=== PATIENT | male | born 1985 | race Caucasian/White ===

== ENCOUNTER 2023-01-25 16:18 | Outpatient (AMB) | payer OTHER, SELFPAY ==
--- NOTE | 2023-01-25 16:20 | MHC.PC.OV ---
Vital Signs 01/25/23 16:23 Height 5 ft 11 in Weight 259 lb 8 oz BMI 36.2 BP 112/82 Blood Pressure Location Lt brachial Position Sitting Pulse 75 Pulse Source Pulse Oximeter Pulse Oximetry (%) 99 Oxygen Delivery Method Room Air Intake Visit Reasons: Re establish care, Requesting physical Intake Note: Patient is a new patient here to establish care for physical . Transferring care from Dr Young. Medical records have not been requested and have not received. Clipper Machine Operator Required: No Stamp Machine Servicer: Not Required per policy Accompanied by: Self / Same As Patient Allergies No Known Allergies Allergy (Verified 01/25/23 16:40) Medication List - Last Reconciled 01/25/23 by JONE Luu No Known Home Meds Tobacco use date assessed: 01/25/23 Dental Screening Dental Screen Date: 01/25/23 Did you have a dental visit in the last 12 months?: No Did you have a dental problem in the last 6 months where you did not have access to dental care?: No Was dental information given to patient?: No HPI Re establish care, Requesting physical HPI Details Patient is a 37-year-old male who presents today for physical exam as a new patient. Previous PCP Dr. Young over 5 years ago. Patient reports intermittent right ear tinnitus/whooshing sound for the past 3 months about 2 days per week that last about 1-2 hours/day and this is improving-he would like to hold off on ENT referral at this time. He will call for dental exam. Eye exam up-to-date. Patient would like to hold off on tetanus vaccine. No shortness of breath or chest pain [facility] Surgical History History of vasectomy Social History Housing: House Alcohol intake: never Patient Tobacco Use Status: Never used Tobacco e-Cigarette/Vaping Use: Never Used Second Hand Smoke Exposure: No service: No Current occupational status: employed Current occupation: OT Cognitive needs: No Hearing needs: No Vision needs: Yes (glasses) Questionnaire PHQ-9 Over the last 2 weeks, how often have you been bothered by any of the following problems? 1. Little interest or pleasure in doing things: not at all 2. Feeling down, depressed, or hopeless: not at all 3. Trouble falling or staying asleep, or sleeping too much: not at all 4. Feeling tired or having little energy: not at all 5. Poor appetite or overeating: not at all 6. Feeling bad about yourself - or that you are a failure or have let yourself or your family down: not at all 7. Trouble concentrating on things, such as reading the newspaper or watching television: not at all 8. Moving or speaking so slowly that other people could have noticed. Or the opposite - being so fidgety or restless that you have been moving around a lot more than usual: not at all 9. Thoughts that you would be better off or of hurting yourself in some way: not at all Total score: 0 Depression Screening Interpretation: Negative Depression Screening Done: Yes 49249 - PHQ-9 Billing: Yes Source: Developed by Drs. Diego Dobbs, Leidy Chavez, Chaz Ibarra and colleagues, with an educational monico from [employer]. Thrive Questionnaire Date Thrive assessed: 01/25/23 I am a: Patient What is your living situation today?: I have a steady place to live Within the past 12 months, did the food you bought not last and you didn't have the money to get more?: Never true Within the past 12 months, did you worry whether your food would run out before you got money to buy more?: Never true Do you have trouble paying for medicines?: No Do you have trouble getting transportation to medical appointments?: No Do you have trouble paying your heating and electricity bill?: No Do you have trouble taking care of your child, family member or friend?: No Do you have trouble with day-to-day activities such as bathing, preparing meals, shopping, managing finances, etc.?: No Are you currently unemployed and looking for a job?: No Are you interested in more education?: No Currently or been in a relationship where the following occur: no concerns reported AUDIT C Alcohol Use Questionnaire (AUDIT-C) 1. How often do you have a drink containing alcohol?: Never Total Score: 0 Score Reviewed/Action Taken: No SUJEY-7 AMB Questionnaire SUJEY-7 Date SUJEY - 7 assessed: 01/25/23 Feeling nervous, anxious, or on edge: 0 = Not at all Not being able to stop or control worryin = Not at all Worrying too much about different things: 0 = Not at all Trouble relaxin = Not at all Being so restless that it is hard to sit still: 0 = Not at all Becoming easily annoyed or irritable: 0 = Not at all Feeling afraid as if something awful might happen: 0 = Not at all Total SUJEY-7 score (0-4 normal; 5-9 mild; 10-14 moderate; 15-21 severe): 0 Source: Developed by Drs. Diego Dobbs, Leidy Chavez, Chaz Ibarra and colleagues, with an educational monico from [employer]. SUJEY-7 Assessment Billing SUJEY-7 Assessment Tool: SUJEY-7 Assessment 87005 Review of Systems Const Denies body aches, Denies chills, Denies fever(s) and Denies headache(s) Eyes Denies change in vision ENT Reports as per HPI, Denies dizziness, Denies otalgia, Denies headache(s), Denies nasal discharge, Denies sinus pain and Denies sore throat Card Denies chest pain, Denies edema, Denies lightheadedness and Denies dyspnea Resp Denies cough, Denies dyspnea and Denies wheezing GI Denies abdominal pain, Denies constipation, Denies diarrhea, Denies nausea and Denies vomiting Denies dysuria Musc Denies myalgias Skin/Breast Denies rash Neuro Denies dizziness and Denies headache(s) Aller/Immun Denies wheezing Physical exam (Primary Care) Vital Signs: Last Vital Signs Pulse 75 01/25/23 16:23 BP 112/82 01/25/23 16:23 Pulse Ox 99 01/25/23 16:23 Oxygen Delivery Method Room Air 01/25/23 16:23 BMI result Body Mass Index 36.2 Tobacco/Smoking Status: Tobacco use Status Tobacco use date assessed 01/25/23 01/25/23 16:30 Patient Tobacco Use Status Never used Tobacco 01/25/23 16:30 e-Cigarette/Vaping Use Never Used 01/25/23 16:30 PHQ-9: PHQ-9 Score PHQ-9: Total score 0 01/25/23 16:57 Depression Screening Interpretation: Negative Thrive Assessment: Date of Thrive Assessment Date Thrive assessed 01/25/23 01/25/23 16:30 Currently or been in a relationship where the following occur: no concerns reported Const General: cooperative and no acute distress Orientation/consciousness: patient oriented x3 HENMT Head: Yes normocephalic and Yes atraumatic Ears: TM's normal bilaterally Face and sinus: Yes sinuses nontender Mouth: oropharynx normal and moist mucous membranes Throat: Yes posterior oropharynx normal Eyes General: appearance normal, both eyes and all related structures Pupils: Equal, round and reactive pupils present EOM: EOMs intact bilaterally Neck Neck: Yes normal visual inspection, Yes full ROM and Yes no lymphadenopathy Thyroid: Thyroid normal Resp Effort & Inspection: normal respiratory effort and able to speak in complete sentences Auscultation: clear to auscultation bilaterally, no crackles, no rales, no rhonchi and no wheezes Cardio Rate: regular rate Rhythm: regular rhythm Heart sounds: S1 normal heart sound present, S2 normal heart sound present and no murmurs GI Palpation (GI): Soft to palpation, not firm, nontender, no guarding, not rigid and no hepatosplenomegaly Auscultation: normal bowel sounds General: No CVA tenderness Back/Spine/Pelvis Back: No CVA tenderness Skin General skin exam: no rashes or lesions noted Neuro General: patient oriented x3 Cranial nerves: Yes Equal, round and reactive pupils present Gait exam (Neuro): Normal gait present Extrem General: Yes full ROM and No edema Office Procedures Flu Questionnaire Does the patient have a severe egg allergy?: No Does the patient have severe life threatening allergies?: No Does the patient have a fever or illness today?: No Has the patient ever had Guillain-Lingle Syndrome?: No Has the patient ever had any past reaction to a flu shot?: No Immunizations flu vacc [id number] 6mos up(PF) 60 mcg(15 mcgx4)/0.5 mL IM syringe Performing Provider: JONE Luu Performing Location: [facility] Administered by: NADIR Dominguez on 01/25/23 16:57 Dose Route Admin Location Dispensed Lot Number Expiration Date NDC Bank Officer 0.5 mL IM Left Deltoid 0.5 mL [id number] 09/15/23 02151-501-70 [employer] VIS Given Date VIS Provided VIS Publication Date 01/25/23 Single Vaccine 20 Eligibility Eligibility Date Funding Source Not [facility] Eligible 01/25/23 Private Assessment and Plan Assessment & Plan (1) Tinnitus of right ear: Code(s): H93.11 - Tinnitus, right ear Plan: Improving per patient Patient is to notify office if worsening symptom (2) Adult general medical exam: Code(s): Z00.00 - Encounter for general adult medical examination without abnormal findings Plan: Repeat in 1 year (3) Obesity (BMI 30-39.9): Code(s): E66.9 - Obesity, unspecified Plan: Healthy food choices and exercise as tolerated Orders: Orders TSH reflex Free T4 01/25/23 Z00.00 - Encounter for general adult medical examination without abnormal findings Lipid Panel 01/25/23 Z00.00 - Encounter for general adult medical examination without abnormal findings Comprehensive [place]. Panel Fast 01/25/23 Z00.00 - Encounter for general adult medical examination without abnormal findings Complete Blood Count Auto Diff 01/25/23 Z00.00 - Encounter for general adult medical examination without abnormal findings Influenza [id number] Immunization 01/25/23 Z23 - Encounter for immunization Coding Level of Care Code New Pt Prev Care 18-39yr(62959 Diagnoses Tinnitus of right ear H93.11 Adult general medical exam Z00.00 Obesity (BMI 30-39.9) E66.9 Additional Codes SUJEY-7 Assessment Billing - SUJEY-7 Assessment Tool: SUJEY-7 Assessment 57848 ([id number])
[2023-01-25 16:23] VITALS: BP 112/82; PULSE 75; O2SAT 99; BMI 36.2
== END 2023-01-25 16:54 | disposition home or self-care (01) ==
PROVIDERS: PCP Nurse Practitioner Family; Visit Provider Nurse Practitioner Family
DX: Z23 Encounter for immunization (principal)
CPT/HCPCS: 90471; 90686; 99385

== ENCOUNTER 2024-12-18 08:44 | Outpatient (REF) | payer OTHER, SELFPAY ==
--- NOTE | ~2024-12-18 | XR_ITS ---
EXAMINATION: XR HAND, RIGHT CLINICAL INFORMATION: M79.641 - Pain in right hand COMPARISON: None available. TECHNIQUE: PA, lateral, and oblique views of the right hand. FINDINGS: No fracture, dislocation, or suspicious bone lesion. Along the proximal dorsum of the middle phalanx of the third digit, there is focal periosteal bone formation only appreciated on the lateral projection. There is mild associated soft tissue swelling of the third digit in this region. These findings are nonspecific. Remainder of the bones and soft tissues of the right hand are normal. XR/XR hand RT min 3V IMPRESSION: 1. Nonspecific periostitis and soft tissue swelling involving the dorsum of the proximal middle phalanx, third digit. Underlying bone appears normal. Etiology is uncertain. Electronically signed by: Can Yang MD 12/18/2024 09:25 AM EDT
--- OUTSIDE RECORDS SUMMARY | 2024-12-18 09:06 | XMS_ITS | Clinical Summary ---
Author Organization [facility] ity Address [address] [place] [address] Care Team Providers Care Athletic Trainer Name Role Phone Unavailable Primary Care Provider Unavailabl e Social History Tobacco Use Types Packs/Day Years Used Date Smoking Tobacco: Never Assessed Sex and Gender Information Value Date Recorded Sex Assigned at Not on file Legal Sex Male 8:29 AM EST Gender Identity Not on file Sexual Orientation Not on file Plan of Treatment Health Maintenance Due Date Last Done Comments DTaP,Tdap,and Td Vaccines (1 - Tdap) 2005 Hepatitis B Vaccines (1 of 3 - 19+ 3-dose series) 2005 HPV Vaccines (1 - 3-dose SCD M series) 2013 Depression Screening 03/18/2024 COVID-19 Vaccine (1 - 2023-2 5 season) 2024 Influenza Vaccine (#1) 2024 RSV Immunization Adult Patie nts (1 - 1-dose 75+ series) 2061 HIB Vaccines Aged Out No longer eligi ble based on patient's age to complete this topic Hepatitis A Vaccines Aged Out No long er eligible based on patient's age to complete this topic IPV Vaccines Aged Out No longer eligi ble based on patient's age to complete this topic MMR Vaccines Aged Out No longer eligi ble based on patient's age to complete this topic Meningococcal ACWY Vaccine Aged Out N o longer eligible based on patient's age to complete this topic Meningococcal B Vaccine Aged Out No l onger eligible based on patient's age to complete this topic Pneumococcal Vaccine: Pediat rics (0 to 5 Years) and At-Risk Patients (6 to 49 Years) Aged Out No longer eligible b ased on patient's age to complete this topic RSV Immunization Patients Un derik 20 months Aged Out No longer eligible b ased on patient's age to complete this topic Varicella Vaccines Aged Out No longer eligible based on patient's age to complete this topic
== END 2024-12-18 08:45 | disposition home or self-care (01) ==
LOC: HO.HOSX 08:44
PROVIDERS: Visit Provider Physician Assistant
DX: M20.021 Boutonniere deformity of right finger(s) (principal)
CPT/HCPCS: 73130

== ENCOUNTER 2024-12-18 09:09 | Outpatient (AMB) | payer OTHER, SELFPAY ==
--- NOTE | 2024-12-18 09:16 | A.OFFVIS_ITS ---
Vital Signs 12/18/24 09:23 Height 6 ft Weight 260 lb BMI 35.3 Intake Visit Reasons: MANAGER FINANCIAL-RT hand, middle finger injury-DOI 1 month ago Intake Note: Charlie is a 39 year old right hand domnant male who presents today as a new patient for an evaluation of right hand, middle finger injury, DOI 10/26/24. Patient reports that he was in [place] on a rope swing when he slipped and had gotten his finger caught in the knot. His finger was self reduced and had purchased finger splint. Currently his discomfort comes with applying pressure to his finger. He continues to have swelling in his finger. No other treatments. Allergies No Known Allergies Allergy (Verified 12/18/24 09:27) HPI HPI MANAGER FINANCIAL-RT hand, middle finger injury-DOI 1 month ago: Details: 39 yo male presents to the office today for right middle finger swelling, in Oct he was in vacation and went in the water with a rope swing and when he used the swing his finger got stuck i a knot and when he fell into the water he realized his finger was dislocated and he relocated it him self. 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 He continues to experience swelling and pain. He was seen at an urgent care, xrays obtained and was referred to our office for ortho eval. [facility] Surgical History History of vasectomy Social History (Updated 12/18/24 @ 09:20 by ISABELLA Angelo) Housing: House Alcohol intake: never Patient Tobacco Use Status: Never used Tobacco e-Cigarette/Vaping Use: Never Used Second Hand Smoke Exposure: No service: No Current occupational status: employed Current occupation: OT, right hand dominant Cognitive needs: No Hearing needs: No Vision needs: Yes (glasses) Review of Systems Const All systems reviewed & are unremarkable except as noted in HPI and below Physical Exam Vital Signs: BMI result Body Mass Index 35.3 Const General: cooperative and no acute distress Orientation/consciousness: patient oriented x3 Resp Effort & Inspection: normal respiratory effort and able to speak in complete sentences Cardio Peripheral pulses: Peripheral pulses 2+ throughout Neuro General: patient oriented x3 Extrem Other: Rt hand middle finger full ROM without limitations, mild swelling . He had flexion of the pip and extension of the dip resembling a boutonniere deformity. Results Reviewed Results Reviewed: XR hand RT min 3V IMPRESSION: 1. Nonspecific periostitis and soft tissue swelling involving the dorsum of the proximal middle phalanx, third digit. Underlying bone appears normal. Etiology is uncertain. Assessment & Plan Assessment & Plan (1) Boutonniere deformity of right finger(s): Code(s): M20.021 - Boutonniere deformity of right finger(s) Category: Medical Plan: I explained to the patient the extent of it is injury which seems to be an injury to the extensor mechanism. Because this is a proximally 2 months out from injury I am unsure if there is any reversal of the injury which would include surgical intervention. He has tried bracing which has failed. I would like to have him see Dr. Saucedo next week to discuss this further. The patient is content with this plan. Orders: Orders XR hand RT min 3V Today M79.641 - Pain in right hand Coding Level of Care Code New Pt Level 3 (79028) Complex EM visit Add On G2211 Diagnoses Boutonniere deformity of right finger(s) M20.021
[2024-12-18 09:23] VITALS: BMI 35.3
== END 2024-12-18 10:18 | disposition home or self-care (01) ==
LOC: HO.HOS 09:10
PROVIDERS: Visit Provider Physician Assistant
DX: M20.021 Boutonniere deformity of right finger(s) (principal)
CPT/HCPCS: 99203; G2211

== ENCOUNTER → 2024-12-18 09:12 | Outpatient (BNV) | payer OTHER, SELFPAY | PROVIDERS: Visit Provider Radiology Diagnostic Radiology | DX: R22.31 Localized swelling, mass and lump, right upper limb (principal); M79.641 Pain in right hand | CPT/HCPCS: 73130 ==

== ENCOUNTER 2024-12-29 09:54 | Outpatient (AMB) | payer OTHER, SELFPAY ==
--- NOTE | 2024-12-29 10:14 | MHC.OFFVIS ---
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 Patient reports that he was in [place] on a rope swing when he slipped and had gotten his finger caught in the knot. His finger was self reduced and had purchased finger splint. Last seen with Sallie Hawkins who advise patient to be re-evaluated with Dr. Saucedo since this is a proximally 2 months out from injury and is unsure if there is any reversal of the injury which would include surgical intervention. Today patient states he has pain with movement and over use of his finger. Denies numbness, tingling or locking if any finger. Allergies No Known Allergies Allergy (Verified 12/29/24 10:24) HPI HPI ov- RT hand MF injury, DOI 10/26/24 discuss surgery: Details: Charlie is a 39 year old right hand dominant man who presents for a right middle finger possible Boutonniere deformity, DOI: 10/26/24. He says he caught his finger in a rope swing while on vacation. He came up out of the water and says his middle finger PIP joint was pointed the wrong way. He self reduced & has been wearing an OTC finger splint. When she was last seen by Shruthi he says that his boutonniere deformity was quite a bit worse. He cut the end off of a close pin splint that held the PIP in extension but allowed for D IP flexion. He feels that this has worked very well for him and he has noticed some significant improvement in the appearance of his finger. He denies any numbness, tingling, locking, or catching. 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 [facility] Surgical History History of vasectomy Social History Housing: House Alcohol intake: never Patient Tobacco Use Status: Never used Tobacco e-Cigarette/Vaping Use: Never Used Second Hand Smoke Exposure: No service: No Current occupational status: employed Current occupation: OT, right hand dominant Cognitive needs: No Hearing needs: No Vision needs: Yes (glasses) Review of Systems Const All systems reviewed & are unremarkable except as noted in HPI and below Physical Exam Vital Signs: BMI result Body Mass Index 35.3 Const General: cooperative, healthy appearing and no acute distress Orientation/consciousness: patient oriented x3 HEENT Head: Yes normocephalic and Yes atraumatic Eyes EOM: EOMs intact bilaterally Resp Effort & Inspection: normal respiratory effort and able to speak in complete sentences Cardio Jugular venous distension: no JVD Skin General skin exam: turgor normal Rashes: no rashes Neuro General: patient oriented x3 Extrem Other: Evaluation of Right Upper Extremity: The patient is alert, oriented, and in no acute distress Neuro: Median, Ulnar, Radial nerves motor and sensory intact and sensation is normal to the tips of all digits Vascular: Cap refill brisk ROM: Middle finger is lacking ~10 degrees active extension of the PIP joint He can hold this finger extended against resistance Adjacent digits have ~5-10 degrees hyperextension Skin: No lacerations or abrasions. General: No Ecchymosis. No Erythema or evidence of infection. Radiographs: 3 views of the right hand from 12/18/24 were reviewed by me today in clinic. They show no fractures or dislocations. He appears to have made some bone on the dorsal aspect of the middle finger middle phalanx. No visible fractures. Psych Appearance: grossly normal Affect: normal affect Attitude: cooperative Assessment & Plan Assessment & Plan (1) Boutonniere deformity of right finger(s): Comment: Code(s): M20.021 - Boutonniere deformity of right finger(s) Category: Medical (2) Stiffness of finger joint of right hand: Code(s): M25.641 - Stiffness of right hand, not elsewhere classified Category: Medical Plan Assessment & Plan: 1. Right middle finger very mild Boutonniere deformity From an injury, DOI: 10/26/24 Improving with conservative management 2. Right middle finger stiffness Secondary to splinting I educated him about this condition i discussed treatment options. No operative intervention indicated at this time. He is doing well, and has had considerable improvement with non-operative treatment with a custom finger splint he fashioned himself I recommend activity modification & splinting, and he is in agreement I ordered OT hand therapy to have a custom finger splint made for him, holding the PIP joint in extension & allowing for DIP flexion. He will wear this for about 10 hours daily for the next 6-8 weeks. He is permitted to bring the fingers into flexion to prevent stiffness. He should bring his current finger splint into OT as an example of what splint works well for him he will work on active D IP flexion with a PIP held in extension. OT hand therapy also to help. He will follow up 6-8 weeks to see how he is doing. Scribed for Latasha Saucedo MD by Sukumar Brooke, medical laboratory scientist, on 12/29/24 at 10:30 AM, EST. Orders: Orders OT Evaluation and Treatment Today M25.641 - Stiffness of right hand, not elsewhere classified Coding Level of Care Code Est Pt Level 3 (11061) Diagnoses Boutonniere deformity of right finger(s) M20.021 Stiffness of finger joint of right hand M25.641
[2024-12-29 10:15] VITALS: BMI 35.3
--- OUTSIDE RECORDS SUMMARY | 2024-12-29 11:17 | XMS_ITS | Clinical Summary ---
Author Organization [facility] ity Address [address] [place] [address] Care Team Providers Care Archaeologist Name Role Phone Unavailable Primary Care Provider [...]
== END 2024-12-29 10:39 | disposition home or self-care (01) ==
LOC: HO.HOS 09:54
PROVIDERS: Visit Provider Orthopaedic Surgery
DX: M20.021 Boutonniere deformity of right finger(s) (principal); M25.641 Stiffness of right hand, not elsewhere classified
CPT/HCPCS: 99213

== ENCOUNTER 2025-01-04 11:02 | Outpatient (RCR) | payer OTHER, SELFPAY ==
--- NOTE | 2025-01-04 13:23 | MHC.OT.EP ---
[facility] Office [address] [phone] F: [phone] F: [phone] Occupational Therapy Plan of Care Patient Name: Charlie Givens Date of Evaluation: 01/04/25 Diagnosis: R MF Boutonniere Deformity Pain Location: Pain Score: 4 Pain Scale Used: Numeric (0 - 10) Aggravating Factors: Alleviating Factors: Assessment: Pt is a 39 yr. old R hand dominant male who injured his R MF While using a rope swing in October. 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 He saw Dr. Saucedo recently who reported he is healing well. He was referred to skilled OT therapy for fabrication of a custom orthoses, and education on DIP J ROM. 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 Frequency and Duration: The patient will be seen 1 x visit for fabrication of an orthoses Short Term Goals: Correction Goals: Pt will be compliant w/ orthoses wear Treatment Plan: Splinting Electronically Signed By: Marta Rose OTR/L Please Sign and return to therapist. Thank you once again for your referral.
--- NOTE | 2025-01-04 13:29 | MHC.OT.DC ---
[facility] Office [address] [phone] F: [phone] F: [phone] Occupational Therapy Discharge Note Patient Name: Charlie Givens Provider: Latasha Saucedo Diagnosis: R MF Boutonniere Deformity Date of Surgery: Date of Evaluation: 01/04/25 Date of Discharge: Treatments to Date: 1 Cancellations to Date: No Shows to Date: Discharge Status: Discharge Summary: 1 X VISIT FOR FABRICATION OF AN ORTHOSES THANK YOU FOR INCLUDING OUR TEAM IN THIS PATIENTS CARE! Electronically Signed By: Marta Rose OTR/L Reviewed/agree with student documentation: Therapist: Please Sign and return to therapist, thank you for your referral.
== END 2025-01-04 13:29 | disposition home or self-care (01) ==
LOC: HO.OT 11:02
PROVIDERS: Visit Provider Orthopaedic Surgery
DX: M25.641 Stiffness of right hand, not elsewhere classified (principal)
CPT/HCPCS: 29130; 97165; 97760

== ENCOUNTER 2025-02-09 09:44 | Outpatient (AMB) | payer OTHER, SELFPAY ==
[2025-02-09 10:01] VITALS: BMI 35.3
--- NOTE | 2025-02-09 10:01 | A.OFFVIS_ITS ---
Vital Signs 02/09/25 10:01 Height 6 ft Weight 260 lb BMI 35.3 Intake Visit Reasons: OV-RT hand MF injury, DOI 10/26/24-Follow up Intake Note: Charlie 39 yr old male presents today for his follow up visit for his right middle finger stiffness & right middle finger deformity from an injury, DOI: 10/26/24. States he was in [place], on a rope swing when he slipped and had gotten his finger caught in the knot. Patient last seen with Dr Saucedo who advise patient to attend O.T to have a custom finger splint made to be worn for 10 hours daily for the next 6-8 weeks. Today patient states he is wearing his custom made splint as needed. Reports he is able to make a fist, still feels a little stiffness but is a lot better than before.Denies numbness or tingling. 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 This is being managed cons ervatively with OT and custom splinting with the PIP in extension working on active D IP flexion. He says he has noticed considerable improvement. He says he caught his finger in a rope swing while on vacation. He came [place] of the water and says his middle finger PIP joint was pointed the wrong way. He denies any numbness, tingling, locking, or catching. 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 [facility] Surgical History History of vasectomy Social History Housing: House Alcohol intake: never Patient Tobacco Use Status: Never used Tobacco e-Cigarette/Vaping Use: Never Used Second Hand Smoke Exposure: No service: No Current occupational status: employed Current occupation: OT, right hand dominant Cognitive needs: No Hearing needs: No Vision needs: Yes (glasses) Physical Exam Vital Signs: BMI result Body Mass Index 35.3 Extrem Other: Evaluation of Right Upper Extremity: The patient is alert, oriented, and in no acute distress Neuro: Median, Ulnar, Radial nerves motor and sensory intact and sensation is normal to the tips of all digits Vascular: Cap refill brisk ROM: He can fully & actively extend at the middle finger PIP joint Mild hyperextension at the DIP joint He can flex the DIP joint when making fist Mild PIP joint swelling, nontender All in all, considerable improvement. Assessment & Plan Assessment & Plan (1) Boutonniere deformity of right finger(s): Comment: Code(s): M20.021 - Boutonniere deformity of right finger(s) Category: Medical (2) Stiffness of finger joint of right hand: Code(s): M25.641 - Stiffness of right hand, not elsewhere classified Category: Medical Plan Assessment & Plan: 1. Right middle finger very mild Boutonniere deformity From an injury, DOI: 10/26/24 Improving with conservative management 2. Right middle finger stiffness Secondary to splinting I educated him about this condition He is doing well, and has had considerable improvement with non-operative treatment& splinting, and is happy with his improvement. I recommend he return to light & medium weight activities and slowly increase as tolerated. He should continue tow ear his splint with daily activities, and when working on DIP joint ROM exercises, keeping the PIP joint extended He will continue to work on ROM exercises at home He will follow up prn Scribed for Latasha Saucedo MD by Sukumar Brooke, medical management specialist, on 02/09/25 at 10:15 AM, EST. Coding Level of Care Code Est Pt Level 3 (48824) Diagnoses Boutonniere deformity of right finger(s) M20.021 Stiffness of finger joint of right hand M25.641
--- OUTSIDE RECORDS SUMMARY | 2025-02-09 11:23 | XMS_ITS | Clinical Summary ---
Author Organization [facility] ity Address [address] [place] [address] Care Team Providers Care Fitting Supervisor Name Role Phone Unavailable Primary Care Provider [...] Depression Screening 03/18/2024 COVID-19 Vaccine (1 - 2024-2 6 season) 2024 Influenza Vaccine (#1) 2024 RSV [...]
== END 2025-02-09 10:32 | disposition home or self-care (01) ==
LOC: HO.HOS 09:45
PROVIDERS: Visit Provider Orthopaedic Surgery
DX: M20.021 Boutonniere deformity of right finger(s) (principal); M25.641 Stiffness of right hand, not elsewhere classified
CPT/HCPCS: 99213